=== PATIENT | female | born 1995 | race African-American/Black ===

== ENCOUNTER 2016-12-30 14:14 | Emergency (ER) | payer SELFPAY ==
[2016-12-30 14:18] VITALS: BP 115/58; PULSE 103; TEMP 98.3; BMI 24.6
--- NOTE | 2016-12-30 14:32 | PDOC ---
History of Present Illness - General Chief Complaint: Toothache Stated Complaint: TOOTHACHE History Source: Patient Exam Limitations: No Limitations - History of Present Illness Initial Comments: 12/30/16 14:31 CHIEF COMPLAINT: Impacted and cracked left upper third molar HISTORY OF PRESENT ILLNESS: Patient is a 21-year-old female, no significant medical history currently on no medication reports that she has had issues with her teeth, cracked teeth and was unable to get an appointment for dentist until January 31. Patient complaining of pain now to left upper third molar. No difficulty swallowing, no facial edema, no lymphadenopathy. Patient reports she has been having dental issues for several months. 12/30/16 14:55 Severity: moderate Past History - Past Medical History Allergies/Adverse Reactions: Allergies Allergy/AdvReac Type Severity Reaction Status Date / Time bee pollen Allergy Severe Swelling Verified 12/30/16 14:18 shellfish derived Allergy Severe Swelling Verified 12/30/16 14:18 ibuprofen Allergy Mild Rash Verified 12/30/16 14:18 Home Medications: Ambulatory Orders Oxycodone HCl/Acetaminophen [Percocet 5-325 mg Tablet] 1 tab PO Q4H #12 tablet MDD 6 12/30/16 Penicillin V Potassium [Pen Vee K -] 500 mg PO QID #28 tablet 12/30/16 Asthma: Yes - Immunization History Immunization Up to Date: Yes - Psycho/Social/Smoking Cessation Hx Anxiety: No Suicidal Ideation: No Smoking History: Never smoked Hx Alcohol Use: No Drug/Substance Use Hx: No Substance Use Type: None Review of Systems - Review of Systems HEENTM: Yes: Mouth Pain. No: Throat Pain, Throat Swelling, Dental Problems, Difficulty Swallowing, Mouth Swelling Respiratory: No: Symptoms reported Cardiac (ROS): No: Symptoms Reported ABD/GI: No: Symptoms Reported : No: Symptoms Reported Musculoskeletal: No: Symptoms Reported Integumentary: No: Symptoms Reported Neurological: No: Symptoms reported Hematologic/Lymphatic: No: Lymph Node Abnormalities, Swollen Glands All Other Systems: Reviewed and Negative *Physical Exam - Vital Signs Last Vital Signs Temp Pulse Resp BP Pulse Ox 98.3 F 103 H 20 115/58 100 12/30/16 14:14 12/30/16 14:14 12/30/16 14:14 12/30/16 14:14 12/30/16 14:14 - Physical Exam General Appearance: Yes: Appropriately Dressed. No: Apparent Distress HEENT: positive: Pharynx Normal. negative: Pharyngeal Erythema, Tonsillar Exudate, Tonsillar Erythema, Nasal Congestion, Rhinorrhea, Sinus Tenderness, Hearing Decreased, TM Bulging, TM Dull, TM Erythema, Lesions, Tolbert, Excessive drooling, Thrush Neck: negative: Tender, Tender lateral, Tender midline Respiratory/Chest: positive: Lungs Clear, Normal Breath Sounds. negative: Respiratory Distress, Accessory Muscle Use Cardiovascular: positive: Regular Rhythm, Regular Rate Lymphatic: negative: Adenopathy Integumentary: positive: Normal Color, Dry Neurologic: positive: Alert, Normal Mood/Affect Medical Decision Making - Medical Decision Making 12/30/16 14:31 [facility] I stop reviewed. Patient Name: Vivian Becerra Date: 1995 Address: [address] [place] [address] Sex: Female Rx Written Rx Dispensed Drug Quantity Days Supply Prescriber Name 06/03/2016 06/04/2016 oxycodone-acetaminophen 5-325 mg tab 20 5 Hilton Ram DO 12/30/16 14:58 A/P: Patient here for evaluation of dental pain, patient with noted cracked tooth no root exposure however molar which is cracked a slightly impacted. Attempted to find dentist to takes her insurance, encourage patient to call back of the card to find a dentist which takes her insurance. We'll discharge patient home on penicillin and Percocet as needed for pain, follow-up with emergency dental or dental which takes her insurance. *DC/Admit/Observation/Transfer Diagnosis at time of Disposition: Impacted tooth, Cracked tooth - Discharge Dispostion Disposition: HOME Condition at time of disposition: Good Admit: No - Prescriptions Prescriptions: Penicillin V Potassium [Pen Vee K -] 500 mg PO QID #28 tablet Oxycodone HCl/Acetaminophen [Percocet 5-325 mg Tablet] 1 tab PO Q4H #12 tablet MDD 6 - Patient Instructions Printed Discharge Instructions: DI for Dental Pain Additional Instructions: Warm saltwater gargles May apply dental wax that she can purchase [id number] to [facility] take dental walkins between 8 AM and 12 PM in [facility], May call [phone] for information
== END 2016-12-30 15:13 | disposition home or self-care (01) ==
LOC: JERFT 14:14
DX: K08.89 Other specified disorders of teeth and supporting structures (principal)
CPT/HCPCS: 99281-25

== ENCOUNTER 2017-03-23 18:05 | Emergency (ER) | payer OTHER ==
[2017-03-23 18:11] VITALS: BP 135/78; PULSE 89; TEMP 98.4; BMI 22.6
[2017-03-23] MEDS ORDERED: IBUPROFEN 400 MG TABLET (FP) PO ONE ×2 (18:56→19:21)
[2017-03-23] MEDS ORDERED: CYCLOBENZAPRINE HCL 10 MG TABLET (FP) PO ONE (18:56)
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
[2017-03-23] MEDS ORDERED: CYCLOBENZAPRINE HCL 10 MG TABLET (FP) ONE (19:21)
== END 2017-03-23 20:50 | disposition home or self-care (01) ==
LOC: JERFT 18:05
DX: M25.512 Pain in left shoulder (principal); S13.4XXA Sprain of ligaments of cervical spine, initial encounter; V43.62XA Car passenger injured in collision with other type car in traffic accident, initial encounter; Y93.89 Activity, other specified; Y92.410 Unspecified street and highway as the place of occurrence of the external cause; J45.909 Unspecified asthma, uncomplicated
CPT/HCPCS: 72050-TC; 73030-TC-LT; 84703; 99281-25

== ENCOUNTER 2018-06-06 16:22 | Emergency (ER) | payer OTHER ==
[2018-06-06 16:44] VITALS: BP 114/71; PULSE 78; TEMP 97.6; BMI 25.1
--- NOTE | 2018-06-06 16:45 | PDOC ---
Rapid Medical Evaluation Chief Complaint: Vaginal Bleeding Time Seen by Provider: 06/06/18 16:43 Medical Evaluation: Allergies Allergy/AdvReac Type Severity Reaction Status Date / Time bee pollen Allergy Severe Swelling Verified 03/23/17 18:11 shellfish derived Allergy Severe Swelling Verified 03/23/17 18:11 ibuprofen Allergy Mild Rash Verified 03/23/17 18:11 Latex, Natural Rubber AdvReac Mild Rash Verified 03/23/17 18:11 06/06/18 16:44 I have done a brief in-person assessment of this patient. The patient presents with a chief complaint of vaginal bleeding x 1 week. Patient reports , 8-10 weeks with bleeding x 1 week. States with clots at time. Also reports light cramping. LMP 04/15/19 Pertinent physical exam findings NAD even and unlabored breathing abdomen non tender I have ordered the following: urine preg, bhcg, The patient will proceed to the Ed for further evaluation. Dx: vaginal bleeding Discharge Disposition - Discharge Dispostion Condition at time of disposition: Stable - Referrals - Patient Instructions - Post Discharge Activity
[2018-06-06 18:07] LABS: HCG,QUALITATIVE URINE Positive; URINE APPEARANCE CLEAR; URINE BILIRUBIN NEGATIVE (<2.0 mg/dL); URINE COLOR YELLOW; URINE GLUCOSE (UA) NEGATIVE (NEGATIVE); URINE KETONE NEGATIVE (NEGATIVE); URINE LEUK ESTERASE NEGATIVE (NEGATIVE); URINE NITRITE NEGATIVE (NEGATIVE); URINE PROTEIN NEGATIVE (NEGATIVE); URINE UROBILINOGEN 4.0 E.U/dl mg/dL (0.2-1.0)
--- NOTE | 2018-06-06 19:28 | PDOC ---
History of Present Illness - General Chief Complaint: Vaginal Bleeding Stated Complaint: VAGINAL BLEED ( 8 WEEKS) Time Seen by Provider: 06/06/18 16:43 Past History - Past Medical History Allergies/Adverse Reactions: Allergies Allergy/AdvReac Type Severity Reaction Status Date / Time bee pollen Allergy Severe Swelling Verified 03/23/17 18:11 shellfish derived Allergy Severe Swelling Verified 03/23/17 18:11 ibuprofen Allergy Mild Rash Verified 03/23/17 18:11 Latex, Natural Rubber AdvReac Mild Rash Verified 03/23/17 18:11 Home Medications: Ambulatory Orders Cyclobenzaprine HCl 7.5 mg PO HS #7 tablet 03/23/17 Asthma: Yes COPD: No CHF: No - Surgical History Cholecystectomy: No - Immunization History Immunization Up to Date: Yes - Suicide/Smoking/Psychosocial Hx Smoking History: Never smoked Have you smoked in the past 12 months: No Information on smoking cessation initiated: No Hx Alcohol Use: No Drug/Substance Use Hx: No Substance Use Type: None *Physical Exam - Vital Signs Last Vital Signs Temp Pulse Resp BP Pulse Ox 97.6 F 78 18 114/71 100 06/06/18 16:43 06/06/18 16:43 06/06/18 16:43 06/06/18 16:43 06/06/18 16:43 Moderate Sedation - Procedure Monitoring Vital Signs: Procedure Monitoring Vital Signs Temperature 97.6 F 06/06/18 16:43 Pulse Rate 78 06/06/18 16:43 Respiratory Rate 18 06/06/18 16:43 Blood Pressure 114/71 06/06/18 16:43 O2 Sat by Pulse Oximetry (%) 100 06/06/18 16:43 ED Treatment Course - ADDITIONAL ORDERS Additional order review: Laboratory Results 06/06/18 17:42 Urine Color Yellow Urine Appearance Clear Urine pH 5.0 Ur Specific [place] 1.028 Urine Protein Negative Urine Glucose (UA) Negative Urine Ketones Negative Urine Blood Negative Urine Nitrite Negative Urine Bilirubin Negative Urine Urobilinogen 4.0 e.u/dl H Ur Leukocyte Esterase Negative Urine HCG, Qual Positive *DC/Admit/Observation/Transfer - Discharge Dispostion Condition at time of disposition: Stable - Referrals - Patient Instructions - Post Discharge Activity
--- NOTE | 2018-06-06 20:05 | PDOC ---
History of Present Illness - General Chief Complaint: Vaginal Bleeding Stated Complaint: VAGINAL BLEED ( 8 WEEKS) Time Seen by Provider: 06/06/18 16:43 - History of Present Illness Initial Comments: 06/06/18 20:01 The patient is a female at an unknown gestation who presents to our ED c/o 1 week h/o vaginal bleed. Patient states she has been bleeding intermittently daily with no noticed clots. Denies any associated shortness of breath, lightheadedness, palpitations. Was evaluated at [facility] last week for her complaint w/pelvic exam showing closed cervical os and no concerning findings in her labs. Has a previously scheduled appointment with an OBGyn with [facility] in [place] later this week to establish care. State her first two pregnancies resulted in live births and her most recent was ectopic. Denies abdominal pain, nausea/vomiting, diarrhea/constipation, dysuria/ hematuria. LMP was 8 weeks previous. Allergy: Ibuprofen, Latex, Shellfish, Bee pollen, natural rubber As per EMR, patient was evaluated in our ED on previous occasion, but never for related complaints. Past History - Past Medical History Allergies/Adverse Reactions: Allergies Allergy/AdvReac Type Severity Reaction Status Date / Time bee pollen Allergy Severe Swelling Verified 03/23/17 18:11 shellfish derived Allergy Severe Swelling Verified 03/23/17 18:11 ibuprofen Allergy Mild Rash Verified 03/23/17 18:11 Latex, Natural Rubber AdvReac Mild Rash Verified 03/23/17 18:11 Home Medications: Ambulatory Orders Cyclobenzaprine HCl 7.5 mg PO HS #7 tablet 03/23/17 Asthma: Yes COPD: No CHF: No - Surgical History Cholecystectomy: No - Immunization History Immunization Up to Date: Yes - Suicide/Smoking/Psychosocial Hx Smoking History: Never smoked Have you smoked in the past 12 months: No Information on smoking cessation initiated: No Hx Alcohol Use: No Drug/Substance Use Hx: No Substance Use Type: None Review of Systems - Review of Systems Constitutional: No: Chills, Fever HEENTM: No: Blurred Vision, Double Vision Respiratory: No: Shortness of Breath, Wheezing Cardiac (ROS): No: Chest Pain, Lightheadedness, Palpitations, Syncope ABD/GI: No: Constipated, Diarrhea, Nausea, Vomiting : No: Burning, Dysuria *Physical Exam - Vital Signs Last Vital Signs Temp Pulse Resp BP Pulse Ox 97.6 F 78 18 114/71 100 06/06/18 16:43 06/06/18 16:43 06/06/18 16:43 06/06/18 16:43 06/06/18 16:43 - Physical Exam General Appearance: Yes: Nourished, Appropriately Dressed HEENT: positive: Normal Voice, Hearing Grossly Normal Neck: positive: Trachea midline, Supple Respiratory/Chest: positive: Lungs Clear, Normal Breath Sounds Cardiovascular: positive: S1, S2 Gastrointestinal/Abdominal: positive: Soft. negative: Tender Extremity: positive: Normal Capillary Refill, Normal Inspection Integumentary: positive: Normal Color, Dry, Warm Neurologic: positive: Fully Oriented, Alert Moderate Sedation - Procedure Monitoring Vital Signs: Procedure Monitoring Vital Signs Temperature 97.6 F 06/06/18 16:43 Pulse Rate 78 06/06/18 16:43 Respiratory Rate 18 06/06/18 16:43 Blood Pressure 114/71 06/06/18 16:43 O2 Sat by Pulse Oximetry (%) 100 06/06/18 16:43 ED Treatment Course - ADDITIONAL ORDERS Additional order review: Laboratory Results 06/06/18 17:42 Urine Color Yellow Urine Appearance Clear Urine pH 5.0 Ur Specific [place] 1.028 Urine Protein Negative Urine Glucose (UA) Negative Urine Ketones Negative Urine Blood Negative Urine Nitrite Negative Urine Bilirubin Negative Urine Urobilinogen 4.0 e.u/dl H Ur Leukocyte Esterase Negative Urine HCG, Qual Positive Medical Decision Making - Medical Decision Making 06/06/18 20:05 23 year old female presents with vaginal bleeding. VS unremarkable. TVUS, labs ordered in triage. Patient reports O+ blood type and no known administration of Rhogam. Frontal diagnosis: Ectopic vs. Threatened AB vs. Spontaneous AB vs. Physiologic bleeding of . TVUS pending. Will also obtain UA to evaluate for proteinuria. 06/06/18 20:52 TVUS shows live IUP, FHR 146 @ EGA 6 weeks and 3 days. Will discharge home with return precautions and copy of TVUS. I discussed the physical exam findings, ancillary test results and final diagnoses with the patient. I answered all of the patient's questions. The patient was satisfied with the care received and felt comfortable with the discharge plan and treatment plan. The patient will return to the Emergency Department with any new, persistent or worsening symptoms. *DC/Admit/Observation/Transfer Diagnosis at time of Disposition: Vaginal bleeding - Discharge Dispostion Disposition: HOME Condition at time of disposition: Stable Decision to Admit order: No - Referrals Referrals: Deshawn Babcock MD [Staff Physician] - - Patient Instructions Printed Discharge Instructions: DI for Vaginal Bleeding During Additional Instructions: You were evaluated today for vaginal bleeding. Your transvaginal ultrasound showed a pregancy at 6 weeks and 3 days. At this time you are safe for discharge home. We are providing you a copy of your ultrasound. Please take this report with you when you are evaluated by your OB-Plaster Molder later this week. If you are unable to see your OB-Plaster Molder, we have provided a referral for you or you can call your insurance company for a list of referrals. Your care is not complete until you are evaluated by an OB-Plaster Molder. Return to the Emergency Department for any new/worsening/concerning symptoms. - Post Discharge Activity
--- NOTE | 2018-06-06 20:13 | PDOC ---
Attending Attestation - HPI HPI: This patient is a 23 year old female with PMHx of 2 1 ectopic (2018), asthma, who presents with vaginal bleeding. US shows 1 live intrauterine with heart rate of 148 approximate 6 weeks and 3 days. Patient states she is O+ blood type. ObGYN: Dr. Echeverria in [place] - Physicial Exam PE: GENERAL: Well-appearing, well-nourished. No apparent distress. HEENT: Normocephalic, atraumatic. PERRL, EOM intact. CARDIOVASCULAR: Normal S1, S2. Regular rate and rhythm. PULMONARY: Clear to auscultation bilaterally. ABDOMEN: Soft, non-distended, non-tender. EXTREMITIES: Normal ROM in all four extremities. No gross deformities. SKIN: Warm, dry. No rash NEUROLOGICAL: No gross focal neurological deficits. <Viv Lopez - Last Filed: 06/06/18 20:21> - Resident Resident Name: Katherine Redman - ED Attending Attestation I have performed the following: I have examined & evaluated the patient, The case was reviewed & discussed with the resident, I agree w/resident's findings & plan, Exceptions are as noted - HPI HPI: 06/06/18 20:12 23 yo female p/w vag bleeding and reports being about 8 weeks - Medical Decision Making 06/06/18 20:13 transvaginal US sl iup 6 weeks 3 days, [id number] bpm pt reports her blood type is o pos and she never needed rhogam imp threatened AB plan continue care with her construction trench digger 06/06/18 20:26 <Sonya So - Last Filed: 06/06/18 20:27>
== END 2018-06-06 20:50 | disposition home or self-care (01) ==
LOC: JER 16:22
DX: O26.891 Other specified pregnancy related conditions, first trimester (principal); Z3A.01 Less than 8 weeks gestation of pregnancy; N93.9 Abnormal uterine and vaginal bleeding, unspecified
CPT/HCPCS: 76817-TC; 81003; 84703; 99281-25